=== PATIENT | male | born 1995 | race Caucasian/White ===

== ENCOUNTER 2019-07-31 21:30 | Emergency (ER) | payer BC, OTHER ==
--- NOTE | 2019-07-31 21:43 | Emergency Department Record ---
History of Present Illness - General Stated complaint: EAR PAIN Time Seen by Provider: 07/31/19 21:34 Source: Patient Mode of Arrival: Ambulatory Limitations: No limitations - History of Present Illness Initial comments: 23 yo male presents to ED for evaluation of decreased hearing and pain symptoms to the right ear that began last night. Patient denies any recent trauma, FB, or injury. Patient denies drainage from the ear, denies fevers, chills, or recent illness. Patient also denies sore throat, cough, or headache symptoms. Patient denies health problems at his baseline. MD complaint: Ear pain Onset/Timin -: Hour(s) Location: R ear Severity: Moderate Quality: Aching Consistency: Constant Improves with: None Worsens with: None - Related Data Previous Rx's Medication Instructions Recorded Neomycin/Polymyxin B Sulf/Hc 2 drop AFFEAR QID #10 ml 07/31/19 [Cortisporin Otic] Allergies Allergy/AdvReac Type Severity Reaction Status Date / Time No Known Allergies Allergy Unverified 11/27/15 08:26 Review of Systems Constitutional: Denies: Chills, Fever, Malaise, Night sweats Eyes: Denies: Eye discharge, Eye pain ENT: Reports: Ear pain. Denies: Congestion, Dental pain Respiratory: Denies: Cough, Dyspnea Cardiovascular: Denies: Chest pain, Dyspnea on exertion Endocrine: Denies: Fatigue, Heat or cold intolerance Gastrointestinal: Denies: Abdominal pain, Nausea Genitourinary: Denies: Frequency, Incontinence, Retention Musculoskeletal: Denies: Arthralgia, Back pain Skin: Denies: Bruising, Change in color Neurological: Denies: Abnormal gait, Confusion, Headache, Tingling, Tremors Psychiatric: Denies: Anxiety Hematological/Lymphatic: Denies: Anemia, Blood Clots Past Medical History - SOCIAL HISTORY Smoking Status: Never smoker - RESPIRATORY Hx Respiratory Disorders: No - CARDIOVASCULAR Hx Cardio Disorders: No - NEURO Hx Neuro Disorders: No - GI Hx GI Disorders: No - Hx Genitourinary Disorders: No - ENDOCRINE Hx Endocrine Disorders: No - MUSCULOSKELETAL Hx Musculoskeletal Disorders: No - PSYCH Hx Psych Problems: No - HEMATOLOGY/ONCOLOGY Hx Hematology/Oncology Disorders: No Physical Exam - General General Appearance: Alert, Oriented x3, Cooperative, Mild distress Limitations: No limitations - Head Head exam: Atraumatic, Normocephalic, Normal inspection Head exam detail: negative: Abrasion, Contusion, Chowdhury's sign, General tenderness, Hematoma, Laceration - Eye Eye exam: Normal appearance. negative: Conjunctival injection, Periorbital swelling, Periorbital tenderness, Scleral icterus - ENT Ear exam: External canal tenderness, Other (Swelling, irritation of the EAC right ear). negative: Auricular hematoma, Auricular trauma Nasal Exam: negative: Active bleeding, Discharge, Dried blood, Foreign body Mouth exam: negative: Drooling, Laceration, Muffled voice, Tongue elevation - Neck Neck exam: Normal inspection. negative: Meningismus, Tenderness - Respiratory Respiratory exam: Normal lung sounds bilaterally. negative: Respiratory distress, Rhonchi, Stridor, Wheezes - Cardiovascular Cardiovascular Exam: Regular rate, Normal rhythm, Normal heart sounds - GI/Abdominal GI/Abdominal exam: Soft. negative: Distended, Rebound, Rigid, Tenderness - Rectal Rectal exam: Deferred - exam: Deferred - Extremities Extremities exam: Normal inspection. negative: Pedal edema, Tenderness - Back Back exam: Denies: CVA tenderness (R), CVA tenderness (L) - Neurological Neurological exam: Alert, Normal gait, Oriented X3 - Psychiatric Psychiatric exam: Normal affect, Normal mood - Skin Skin exam: Normal color. negative: Abrasion Type of lesion: negative: abrasion Course Vital Signs 07/31/19 21:37 Temperature 97.8 F Pulse Rate [ 82 Pulse Ox Probe] Respiratory 20 Rate Blood Pressure 159/79 [Left Arm] Pulse Ox 98 - Reevaluation(s) Reevaluation #1: 07/31/19 21:41 History and examination appear c.w otitis externa right ear Wick does not appear indicated at this time based on the patency of the EAC. Will treat with Polymyxin ear drops as directed. Patient appears stable for discharge at this time. Disposition Disposition: Discharge Clinical Impression: Otitis externa of right ear Qualifiers: Otitis externa type: unspecified type Chronicity: acute Qualified Code(s): H60.501 - Unspecified acute noninfective otitis externa, right ear Disposition: Home, Self-Care Condition: (2) Stable Instructions: Otitis Externa (ED) Additional Instructions: Return to ED if your symptoms worsen or if you have any concerns. Polymyxin ear drops as directed. Follow-up with your family doctor in 3-5 days as directed. Prescriptions: Neomycin/Polymyxin B Sulf/Hc [Cortisporin Otic] 2 drop AFFEAR QID #10 ml Time of Disposition: 21:43 Quality - Quality Measures Quality Measures: N/A - Blood Pressure Screening Does Patient Have Any of the Following: No Blood Pressure Classification: Hypertensive Reading Systolic Measurement: 159 Diastolic Measurement: 79 Screening for High Blood Pressure: < First Hypertensive BP, F/U Documented > [[id number]] First Hypertensive Follow-up Interventions: Referral to alternative/primary care provider.
== END 2019-07-31 21:56 | disposition home or self-care (01) ==
LOC: ER 21:30
DX: H60.501 Unspecified acute noninfective otitis externa, right ear (principal)
CPT/HCPCS: 99283